=== PATIENT | male | born 1980 | race Caucasian/White ===

== ENCOUNTER 2017-11-14 12:33 | Emergency (ER) | payer SELFPAY ==
[~2017-11-14] VITALS: Ht 157.5 cm; Wt 90.7 kg
[2017-11-14 13:05] VITALS: BP 131/77
--- NOTE | 2017-11-14 13:09 | NUR ---
PT AMBULATES TO CHAIR A
--- NOTE | 2017-11-14 13:10 | NUR ---
37Y/M C/O BACK PAIN STANDING UP FROM A CHAIR LAST TUESDAY; DENIES ANY INJURY/TRAUMA; DIFFICULTY STANDING UP FROM A CHAIR. HX; DENIES. RX; DENIES. PATIENT STATES PAIN OF 10/10 AT THIS TIME; PATIENT POSITIONED FOR COMFORT; ER MD MADE AWARE OF PT STATUS.
[2017-11-14] MEDS ORDERED: KETOROLAC 60 MG/2 ML VIAL IM ONE (13:30)
--- NOTE | 2017-11-14 13:31 | NUR ---
Patient being evaluated by physician at bedside.
[2017-11-14 14:00] VITALS: BP 129/73
--- NOTE | 2017-11-14 14:12 | NUR ---
Patient discharged with v/s stable. Written and verbal after care instructions given and explained. Patient alert, oriented and verbalized understanding of instructions. Ambulatory with steady gait. All questions addressed prior to discharge. ID band removed. Patient advised to follow up with PMD. Rx of LIDODERM 5% TRANSDERMAL, MOTRINN 800MG, ROBAXIN 750MG given. Patient educated on indication of medication including possible reaction and side effects. Opportunity to ask questions provided and answered.
== END 2017-11-14 14:12 | disposition home or self-care (01) ==
LOC: MED 12:33
DX: M54.5 Low back pain (principal)
CPT/HCPCS: 96372; 99283; J1885